=== PATIENT | female | born 1955 | race Caucasian/White ===

== ENCOUNTER 2023-05-19 10:39 | Emergency (ER) | payer OTHER, SELFPAY ==
[2023-05-19 10:56] VITALS: BP 163/91
--- NOTE | 2023-05-19 11:48 | ED.GENMED ---
History of Present Illness
General
Chief Complaint: Chest Pain
Time Seen by Provider: 05/19/23 11:20
Travel History
Have you had any contact with someone who has COVID-19?: No
Do you have any symptoms of coronavirus? Fever > 100 degrees, chills, cough, shortness of breath, sore throat, loss of taste or smell, muscle aches, or headache?: No
History of Present Illness
History of Present Illness:
68-year-old female with history of hypertension presents to the emergency department for evaluation of chest pressure occurring intermittently for the past 3 days. Symptoms are worse in the morning but gradually improves throughout the day. No
obvious provoking or palliating factors. She denies any exertional component or any postprandial increase in pain. She describes the symptoms as 'indigestion'. Has not taken any [id number] medications to alleviate her symptoms. She does
have a strong family history of coronary artery disease. Former smoker.
Review of Systems
Review of Systems
Allergies reviewed?: Yes
All Other Systems: ROS reviewed and negative except as documented in HPI and ROS
Phy Exam
Physical Exam
Physical Exam:
GEN: Well appearing, NAD, WDWN
HEENT: Oral mucosa moist, no scleral icterus
Cardiac: Regular rate and rhythm, no murmurs
Lung: No respiratory distress, no tachypnea, lungs clear to auscultation bilaterally
MSK: No gross deformity or injuries
Skin: Good color, no pallor or jaundice, no rashes
Neuro: AO x3, moves all extremities freely
Psych: Calm, cooperative
Scores
Heart Score for Chest Pain Patients
STEMI patient?: No
History: Slightly or Non-Suspicious
ECG: Normal
Age: >/= 65 years
Risk Factors: 1 or 2 Risk Factors
Troponin: </= Normal Limit
Heart Score for Chest Pain Patients: 3
Heart Score Risk: 2.5% MACE over next 6 weeks
Course
Orders/Labs/Results
Orders:
Orders
05/19/23 11:00
EKG [Electrocardiogram (*1)] Urgent
Reason for Study: Chest Pain
EKG- Treatment ONCE
05/19/23 11:45
CR Chest - 2 Views Urgent
Comment:
Reason For Exam: chest pain
05/19/23 12:04
Complete Blood Count/With Diff Urgent
05/19/23 12:53
Comprehensive Metabolic Panel Urgent
Troponin I Urgent
Abnormal Lab Results
05/19/23 05/19/23
12:04 12:53
RBC 4.08 L 10^6/uL
(4.20-5.40)
MCH 33.1 H pg
(27.0-31.0)
Absolute Lymphs (auto) 1.0 L 10^3/uL
(1.2-3.4)
Lymphocytes % 19.1 L %
(20.5-51.1)
Monocytes % 12.7 H %
(1.7-9.3)
Sodium 133 L mmol/L
(135-145)
BUN 18 H mg/dl
(7-17)
Glucose 113 H mg/dl
(70-99)
05/19/23 12:04
05/19/23 12:53
Vital Signs
Initial and Last Documented VS:
Initial Vital Signs
Temp Pulse Resp BP Pulse Ox
98.4 F 107 16 163/91 98
05/19/23 10:56 05/19/23 10:56 05/19/23 10:56 05/19/23 10:56 05/19/23 10:56
Last Documented Vital Signs
Temp Pulse Resp BP Pulse Ox
98.4 F 100 21 163/91 100
05/19/23 10:56 05/19/23 12:00 05/19/23 12:00 05/19/23 10:56 05/19/23 12:00
MDM/Problems Addressed
MDM/Problems Addressed:
Patient's cardiac workup is unremarkable, troponin is negative. Symptoms are much more suggestive of acid reflux given the worsening nature each morning and lack of exertional component. Recommend she follow-up with cardiology as an outpatient but
do not feel this is urgent. Will start her on PPIs supportively.
Comment
Comment:
EKG independently interpreted by me shows normal sinus rhythm at a rate of [address] changes concerning for ischemia
Chest x-ray independently interpreted by me shows no acute cardiopulmonary disease
*Critical Care Note
Total Time (30-74mins, 75-104mins- exclusive of procedures): Not Applicable
ED Attending Note
-
Portions of this chart may have been created with voice recognition software.� Occasional wrong word or��sound alike� substitutions may have occurred due to the inherent limitations of voice recognition software.
Discharge Plan
Departure
Patient Disposition: Home (Routine Discharge)
Date of Disposition: 05/19/23
Time of Disposition: 13:36
Patient with high blood pressure during this ER visit?: Yes
Discharge Problem:
Atypical chest pain
Prescriptions:
New
pantoprazole [Protonix] 40 mg tablet,delayed release (DR/EC)
40 mg PO DAILY Qty: 20 0RF
Referrals:
Micki Olea MD [Family Provider] -
Carissa Washburn MD [Active] -
Interventions
Interventions:
*Risk Screen - Suicide Last Done: 05/19/23 10:56
*General Assessment Last Done: 05/19/23 10:56
*Neglect/Abuse Screening Last Done: 05/19/23 10:56
ED- Fall Risk Assessment Last Done: 05/19/23 11:43
*ED COVID-19 Vaccine History Last Done: 05/19/23 11:43
*Nursing Disposition Last Done: 05/19/23 13:40
ED- Cardiac Assessment Last Done: 05/19/23 11:43
Discharge Date and Time
Discharge Date/Time: 05/19/23 13:40
[2023-05-19 12:19] LABS: % Eosinophils 1.2 % (0-6); % Immature Granulocytes 0.2 % (0-0.5); % Lymphocytes 19.1 % (20.5-51.1); % Monocytes 12.7 % (1.7-9.3); % Neutrophils 65.8 % (42.2-75.2); Absolute Basophils 0.1 10^3/uL (0-0.2); Absolute Eosinophils 0.1 10^3/uL (0-0.7); Absolute Monocytes 0.6 10^3/uL (0.1-0.6); Absolute Neutrophils 3.3 10^3/uL (1.4-6.5); Hematocrit 38.1 % (37.0-47.0); Hemoglobin 13.5 g/dL (12.0-16.0); Mean Corp Hgb Conc. 35.4 g/dL (33.0-37.0); Mean Corpuscular Hgb 33.1 pg (27.0-31.0); Mean Corpuscular Volume 93.4 fL (81.0-99.0); Mean Platelet Volume 10.3 fL (7.4-10.4); Nucleated Red Blood Cells % 0 %; Platelet Count 270 10^3/uL (130-400); Red Blood Cell Count 4.08 10^6/uL (4.20-5.40); Red Cell Dist. Width 12.9 % (11.5-14.5)
[2023-05-19 13:12] LABS: ALT (SGPT) 21 U/L (0-35); AST (SGOT) 28 U/L (14-36); Albumin 4.9 g/dl (3.5-5.0); Alkaline Phosphatase 78 U/L (38-126); Blood Urea Nitrogen 18 mg/dl (7-17); Calcium 9.9 mg/dl (8.4-10.2); Carbon Dioxide 28 mmol/L (22-30); Chloride 100 mmol/L (98-107); Glucose 113 mg/dl (70-99); Potassium 4.6 mmol/L (3.5-5.1); Sodium 133 mmol/L (135-145); Total Bilirubin 0.9 mg/dl (0.2-1.3); Total Protein 7.9 g/dl (6.3-8.2); eGFR > 60.00
[2023-05-19 13:23] LABS: Troponin I 0.019 ng/ml
== END 2023-05-19 13:40 | disposition home or self-care (01) ==
LOC: EMR 10:39
PROVIDERS: Physician Assistant; EMERGENCY PHYSICIAN Emergency Medicine; FAMILY PHYSICIAN Family Medicine
DX: R07.89 Other chest pain (principal); I10 Essential (primary) hypertension; Z82.49 Family history of ischemic heart disease and other diseases of the circulatory system; Z87.891 Personal history of nicotine dependence
CPT/HCPCS: 99283; 71046; 80053; 84484; 85025; 93005